=== PATIENT | male | born 1960 | race Caucasian/White ===

== ENCOUNTER → 2019-10-29 09:20 | Outpatient (BNVA) | payer MEDICARE, SELFPAY | PROVIDERS: Family Provider Family Medicine; PCP Family Medicine; Visit Provider Internal Medicine Cardiovascular Disease | DX: I10 Essential (primary) hypertension (principal) | CPT/HCPCS: 80048 ==

== ENCOUNTER 2021-02-02 15:37 | Outpatient (CLI) | payer MEDICARE, SELFPAY ==
--- NOTE | 2021-02-02 15:45 | USCV_ITS ---
Randy Lamb Age: 60 Gender: M : 1960 Exam Date: 02/02/2021 16:03 Ordering Phys: Akila Schwartz MD ([email or web address]) Technologist: Ivanna Martin Exam Location: [facility] [place] Indication: CHEST PAIN BP: 195 / 110 HR: 73 Rhythm: Atrial fibrillation Technical Quality: Adequate MEASUREMENTS (Male / Female) Normal Values 2D ECHO LV Diastolic Diameter PLAX 4.5 cm 4.2 - 5.9 / 3.9 - 5.3 cm LV Systolic Diameter PLAX 2.9 cm IVS Diastolic Thickness 1.8 cm 0.6 - 1.0 / 0.6 - 0.9 cm IVS Systolic Thickness 2.2 cm LVPW Diastolic Thickness 1.2 cm 0.6 - 1.0 / 0.6 - 0.9 cm LVPW Systolic Thickness 1.6 cm LVOT Diameter 2.0 cm LV Ejection Fraction 2D Teich 66.1 % LV Ejection Fraction MOD 2C 63.9 % LV Ejection Fraction 2C AL 67.0 % LA Diameter 3.8 cm LA Width 4.1 cm LA Height 6.4 cm RA Width 4.8 cm RA Height 4.6 cm Aorta at Sinotubular Diameter 3.1 cm M-MODE LV Diastolic Diameter MM 5.0 cm 4.2 - 5.9 / 3.9 - 5.3 cm LV Systolic Diameter MM 2.2 cm LV Ejection Fraction MM Teich 86.2 % IVS Diastolic Thickness MM 1.4 cm 0.6 - 1.0 / 0.6 - 0.9 cm IVS Systolic Thickness MM 2.9 cm LVPW Diastolic Thickness MM 1.7 cm 0.6 - 1.0 / 0.6 - 0.9 cm LVPW Systolic Thickness MM 2.4 cm MV E Point Septal Separation 0.3 cm DOPPLER AV Peak Velocity 100.0 cm/s LVOT Peak Velocity 80.0 cm/s AV Area Cont Eq vti 2.8 cm squared AV Area Cont Eq pk 2.5 cm squared MV Area PHT 4.0 cm squared Mitral E to A Ratio 2.7 MV E' Velocity 63.5 cm/s Mitral E to MV E' Ratio 12.8 Mitral E to LV E' Lateral Ratio 10.3 Mitral E to LV E' Septal Ratio 17.0 TR Peak Velocity 240.0 cm/s TR Peak Gradient 23.0 mmHg TV Peak E Velocity 55.0 cm/s PV Peak Velocity 104.0 cm/s RV Acceleration Time 0.1 s RV Ejection Time 0.3 s RV AcT/ET 0.3 FINDINGS Left Ventricle Normal left ventricular cavity size. Normal left ventricular systolic function. Left ventricular ejection fraction is estimated at 60 %. Grade III/IV diastolic dysfunction (restrictive filling pattern), severely elevated filling pressures. Right Ventricle The right ventricle is normal in size and function. Right Atrium The right atrium is normal in size. Left Atrium Moderately increased left atrial size. Mitral Valve Mildly thickened mitral valve. No mitral valve stenosis. Mild- moderate mitral valve regurgitation. Aortic Valve Structurally normal aortic valve without significant sclerosis or stenosis. There is no aortic regurgitation. Tricuspid Valve Moderate tricuspid valve regurgitation. Pulmonic Valve Structurally normal pulmonic valve without significant stenosis. There is no pulmonic regurgitation. Pericardium Normal pericardium without effusion. Aorta Normal ascending aorta dimension. CONCLUSIONS 1-Normal left ventricular cavity size. Normal left ventricular systolic function. Left ventricular ejection fraction is estimated at 60 %. Grade III/IV diastolic dysfunction (restrictive filling pattern), severely elevated filling pressures. 2-Moderately increased left atrial size. 3-Mildly thickened mitral valve. No mitral valve stenosis. Mild- moderate mitral valve regurgitation. 4-Moderate tricuspid valve regurgitation. 5-There is no pericardial effusion. 6-Right atrial pressure is around 5 mm of mercury. 7-No significant change since the prior echocardiogram study of 04/02/2019. Akila Schwartz MD (Electronically Signed) Final Date: 03 February 2021 20:12 S
== END 2021-02-02 15:38 | disposition home or self-care (01) ==
LOC: RAD 15:43
PROVIDERS: PCP Family Medicine; Visit Provider Internal Medicine Cardiovascular Disease
DX: R07.9 Chest pain, unspecified (principal); R06.02 Shortness of breath; I08.1 Rheumatic disorders of both mitral and tricuspid valves
CPT/HCPCS: 93306

== ENCOUNTER 2021-02-10 07:19 | Outpatient (CLI) | payer MEDICARE, SELFPAY ==
[2021-02-10 07:28] VITALS: BMI 32.5
--- NOTE | 2021-02-10 07:39 | ECG_ITS ---
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 Interpretive Statements NAME OF STUDY: LEXISCAN SESTAMIBI STRESS TEST INDICATION: [sob/cp, ] Procedure: At the baseline, the blood pressure was 163/103 mmHg with a heart rate of 67 bpm. The electrocardiogram showed atrial fibrillation, normal axis with non specific ST-T wave changes. The Lexiscan was infused over a period of 20 seconds. A total of 0.4 mg of Lexiscan was infused. The stress phase was continued for a total of 5 minutes. Heart rate was at the end of stress phase was 79 bpm and a blood pressure of 157/97mmHg. The EKG at the peak infusion revealed since normal sinus rhythm with no significant ST-T wave changes. Sestamibi was injected 20 seconds after the Lexiscan infusion. Blood pressure at the end of recovery phase was 156/96 mmHg with a heart rate of 81 bpm. Conclusion: 1. Normal EKG response to Lexiscan infusion 2. No Lexiscan induced chest pain or cardiac arrhythmia. 3. Normal blood pressure and heart rate response. 4. Sestamibi/sestamibi perfusion scan pending; see separate report. Electronically Signed On 03-28-2021 15:06:47 CDT by Reynold Brown M.D. [id number]
--- NOTE | 2021-02-10 07:39 | NMCV_ITS ---
NM per perf SPECT r/s* [id number] Randy Lamb Age: 60 Gender: M : 1960 Exam Date: 02/10/2021 08:21 Ordering Phys: Akila Schwartz MD ([email or web address]) Technologist: CORRINA Arcos Exam Location: [facility] Indications: CHEST PAIN STRESS TEST [facility] IMAGE PROTOCOL Rest/Stress 1 Lexiscan Day Radiopharmaceutical Dose (mCi) Administration Site Administered by Rest: Tc-99m 10.8 IV CORRINA Miles Sestamibi Stress:Tc-99m 32.6 IV CORRINA Miles Sestamibi Rest: 10-Feb-2021 60 Discovery 630 Stress: 10-Feb-2021 30 Discovery 630 0.4mg Lexiscan. Images obtained in supine and prone position. SPECT RESULTS Technical Quality: Excellent Raw Data Analysis: Normal Image Corrections: No attenuation or motion correction applied Summed Stress Score: 2 Summed Rest Score: 0 Summed Difference Score: 2 PERFUSION FINDINGS There is a small sized reversible perfusion defect in the apical inferior and mid inferior malhotra. FUNCTIONAL RESULTS (calculated via Gated SPECT) Stress Image LV EF (%): 68 Stress EDV (mL):152 TID: 1.11 Stress ESV (mL):48 FUNCTIONAL FINDINGS: There is normal left ventricular systolic function. IMPRESSIONS 1. Abnormal stress test with small sized, reversible perfusion defect of the apical inferior and inferior malhotra. This is consistent with ischemia 2. LV systolic function is normal Reynold Brown MD (Electronically Signed) Final Date: 10 February 2021 13:42 S
[2021-02-10] MEDS: regadenoson 0.4 Mg/5 ml Syringe IVP (08:55)
[2021-02-10] MEDS: hyDRALAzine 20 mg/mL INJ 1 mL 10 MG IVP (09:05)
[2021-02-10 09:27] VITALS: BP 156/96; PULSE 75
== END 2021-02-10 07:20 | disposition home or self-care (01) ==
LOC: CDL 07:24
PROVIDERS: PCP Family Medicine; Visit Provider Internal Medicine Cardiovascular Disease
DX: R06.02 Shortness of breath (principal); R07.9 Chest pain, unspecified
CPT/HCPCS: 78452; 93017; A9500; J0360; J2785

== ENCOUNTER 2022-01-29 19:54 | Observation (INO) | payer MEDICARE, SELFPAY ==
[2022-01-29] VITALS (8 sets, daily range): BP systolic 133–198; BP diastolic 84–115; PULSE 86–99; RESP 14–18; TEMP 37.8–38.3; O2SAT 94–96
--- NOTE | 2022-01-29 20:12 | CTR_ITS ---
PROCEDURE INFORMATION: Exam: CT Abdomen And Pelvis Without Contrast Exam date and time: 01/29/2022 8:38 PM Age: 61 years old Clinical indication: Other: Hernia near umbilicus per PT; Additional info: Fever TECHNIQUE: Imaging protocol: Computed tomography of the abdomen and pelvis without contrast. Radiation optimization: All CT scans at this facility use at least one of these dose optimization techniques: automated exposure control; mA and/or kV adjustment per patient size (includes targeted exams where dose is matched to clinical indication); or iterative reconstruction. COMPARISON: CR (CHEST, ) 01/29/2022 8:21 PM RADIATION DOSE METRICS: Total DLP (mGy-cm): 2782.78 FINDINGS: Lungs: Nonspecific bibasilar ground glass opacity is present, consistent with atelectasis, edema, or mild pneumonitis. Liver: Several hepatic hypodensities are noted compatible with cysts with the largest measuring 2.0cm. Gallbladder and bile ducts: Normal. No calcified stones. No ductal dilation. Pancreas: There is mild peripancreatic inflammatory stranding and fluid, consistent with mild acute pancreatitis vs respiratory motion artifact. Spleen: Normal. No splenomegaly. Adrenal glands: Normal. No mass. Kidneys and ureters: There is no evidence of hydronephrosis. There is no evidence of renal calcifications. There is a 1.0 cm left kidney midpole fat density lesion compatible with an angiomyolipoma. Stomach and bowel: There is no evidence of intestinal perforation or obstruction. No bowel thickening or diverticulits. Appendix: No evidence of appendicitis. Intraperitoneal space: Unremarkable. No free air. No significant fluid collection. Vasculature: Unremarkable.No abdominal aortic aneurysm. Lymph nodes: Unremarkable.No enlarged lymph nodes. Urinary bladder: Unremarkable as visualized. Reproductive: Unremarkable as visualized. Bones/joints: Moderate degenerative changes in spine. No acute fracture. Soft tissues: There is a fat-containing umbilical hernia. No evidence of obstruction or incarceration of the fat in the hernia. CT/CT abdomen pelvis wo con [id number] IMPRESSION: 1. There is a fat-containing umbilical hernia. No evidence of obstruction or incarceration of the fat in the hernia. 2. There is mild peripancreatic inflammatory stranding and fluid, consistent with mild acute pancreatitis vs respiratory motion artifact. 3. Nonspecific bibasilar ground glass opacity is present, consistent with atelectasis, edema, or mild pneumonitis. 4. There is a 1.0 cm left kidney midpole fat density lesion compatible with an angiomyolipoma.
--- NOTE | 2022-01-29 20:12 | ECG_ITS ---
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 Measurements Intervals [place] Rate: 95 P: GA: QRS: 44 QRSD: 90 T: 44 QT: 331 QTc: 417 Interpretive Statements ATRIAL FIBRILLATION NONSPECIFIC ST & T-WAVE ABNORMALITY No previous ECG available for comparison Electronically Signed On 01-30-2022 18:31:35 CDT by Reynold Brown M.D. [id number]
--- NOTE | 2022-01-29 20:12 | CTR_ITS ---
PROCEDURE INFORMATION: Exam: CT Head Without Contrast Exam date and time: 01/29/2022 8:34 PM Age: 61 years old Clinical indication: Altered mental status/memory loss; Additional info: Fever TECHNIQUE: Imaging protocol: Computed tomography of the head without contrast. Radiation optimization: All CT scans at this facility use at least one of these dose optimization techniques: automated exposure control; mA and/or kV adjustment per patient size (includes targeted exams where dose is matched to clinical indication); or iterative reconstruction. COMPARISON: No relevant prior studies available. RADIATION DOSE METRICS: Total DLP (mGy-cm): 987.77 FINDINGS: Brain: There is volume loss and periventricular low density compatible with chronic small vessel disease changes. There is no acute intracranial hemorrhage, edema or mass effect. There are small bifrontal benign hygromas. Cerebral ventricles: No ventriculomegaly. Paranasal sinuses: Visualized sinuses are unremarkable. No fluid levels. Mastoid air cells: Visualized mastoid air cells are well aerated. Bones/joints: Unremarkable. No acute fracture. Soft tissues: Unremarkable. CT/CT head wo con* [id number] IMPRESSION: No acute intracranial abnormality.
--- NOTE | 2022-01-29 20:12 | XRR_ITS ---
PROCEDURE INFORMATION: Exam: XR Chest Exam date and time: 01/29/2022 8:21 PM Age: 61 years old Clinical indication: Fever TECHNIQUE: Imaging protocol: XR of the chest. Views: 1 view. COMPARISON: No relevant prior studies available. FINDINGS: Lungs: Nonspecific bibasilar opacity is present, consistent with atelectasis, edema, or pneumonia. Pleural spaces: Unremarkable. No pleural effusion. No pneumothorax. Heart/Mediastinum: There is cardiomegaly. Bones/joints: No acute abnormality. XR/XR chest 1V portable [id number] IMPRESSION: Nonspecific bibasilar opacity is present, consistent with atelectasis, edema, or pneumonia.
--- NOTE | 2022-01-29 20:16 | W.ED.WEAKNES ---
HPI - Weakness General: Chief complaint: Weakness Stated complaint: fever,confused, headache Time Seen by Provider: 01/29/22 20:06 Source: patient Mode of arrival: ambulatory Limitations: no limitations History of Present Illness: 61-year-old male who states he has had a fever since this morning. He states he had some generalized body aches mild headache along with some abdominal pain he states he has felt confused at times he is able answer all my questions here appropriately denies any neck pain denies any cough denies any vomiting diarrhea denies any sick contacts denies any worsening improving factors. Associated symptoms: Reports chills, fever(s) and headache(s); Denies chest pain, dysuria or easy bruising Review of Systems Const: Reports: fever(s), chills and body aches Eyes: Denies: blurry vision or eye discomfort ENMT: Denies: throat pain or dental pain Card: Denies: chest pain Resp: Denies: dyspnea GI: Reports: abdominal pain : Denies: dysuria Musc: Denies: neck pain or back pain Skin/Breast: Denies: rash Neuro: Reports: headache(s) Psych: Denies: depression Jacques/Lymph: Denies: easy bruising All/Imm: Denies: urticaria PFSH ED PFSH: Medical History Atrial fibrillation HTN (hypertension) Surgical History Previous back surgery S/P appendectomy S/P knee replacement S/P shoulder surgery Family History Mother Hypertension Heart disease Bleeding disorder CAD (coronary artery disease) Diabetes Family history of premature coronary artery disease Father Hypertension Cancer Hyperlipidemia Grandmother Dementia Grandfather Stroke Social History Smoking and tobacco status: former smoker Quit status (tobacco): has quit using tobacco Second hand smoke exposure: Yes Alcohol intake: never Physical Exam Const: COMMON NORMALS: patient oriented x3 and healthy appearing HENMT: COMMON NORMALS: normocephalic and atraumatic HEAD & SCALP: normocephalic and atraumatic Eye: COMMON NORMALS: Equal, round and reactive pupils present and EOMs intact bilaterally PUPIL: Yes Equal, round and reactive pupils present Neck/C-Spine: COMMON NORMALS: full ROM and supple Chest: COMMONS NORMALS: normal inspection of the chest and normal palpation of entire chest wall Resp: COMMON NORMALS: normal respiratory effort, No retractions, No use of accessory muscles and clear to auscultation bilaterally AUSCULTATION: clear to auscultation bilaterally Cardio: COMMON NORMALS: regular rate, regular rhythm and No murmurs present (Cardio) RATE: regular rate RHYTHM: regular rhythm GI: COMMON NORMALS: Normal to inspection, nondistended, normoactive bowel sounds present, Soft to palpation, non-tender and no masses PALPATION: Yes Soft to palpation Extremity: COMMON NORMALS: normal to inspection and full ROM Neuro: COMMON NORMALS: patient oriented x3, moves all extremities and no focal motor deficits Psych: COMMON NORMALS: mental status grossly normal, Normal thought process present and cooperative THOUGHT PROCESS: Normal thought process present Skin: COMMON NORMALS: no rashes or lesions noted and no wounds GENERAL SKIN EXAM: no rashes or lesions noted Course Vital Signs: Vital signs: Vital Signs Temperature 100.0 F H 01/29/22 22:14 Pulse Rate 86 01/29/22 20:56 Respiratory Rate 14 01/29/22 20:56 Blood Pressure 169/103 01/29/22 20:56 Pulse Oximetry 96 01/29/22 20:56 MDM - Weakness Medical Decision Making Patient presents here with some confusion along with a fever CT and x-ray both showed a pneumonia likely causing his fever. His mentation is improved here after his fevers went down he has no signs of meningitis spoke to hospitalist will admit for IV antibiotics and to follow-up. Lab Data : 01/29/22 20:30 01/29/22 20:30 Radiology Impressions Abdomen/Pelvis CT 01/29/22 20:12 IMPRESSION: 1. There is a fat-containing umbilical hernia. No evidence of obstruction or incarceration of the fat in the hernia. 2. There is mild peripancreatic inflammatory stranding and fluid, consistent with mild acute pancreatitis vs respiratory motion artifact. 3. Nonspecific bibasilar ground glass opacity is present, consistent with atelectasis, edema, or mild pneumonitis. 4. There is a 1.0 cm left kidney midpole fat density lesion compatible with an angiomyolipoma. Chest X-Ray 01/29/22:12 IMPRESSION: Nonspecific bibasilar opacity is present, consistent with atelectasis, edema, or pneumonia. Head CT 01/29/22: IMPRESSION: No acute intracranial abnormality. Laboratory Results WBC 7.4 10^3/uL (4.0-10.0) 01/29/22 20: RBC 3.90 10^6/uL (4.1-5.3) L 01/29/22 20: Hgb 13.0 g/dL (11.7-16.6) 01/29/22 20: Hct 36.5 % (42.0-52.0) L 01/29/22 20: MCV 93.6 fl (80-94) 01/29/22: MCH 33.3 pg (28.0-34.0) 01/29/22 20: MCHC 35.6 g/dL (30.0-36.0) 01/29/22: RDW 12.2 % (12.1-15.1) 01/29/22 20: Plt Count 207 10^3/cmm (130-400) 01/29/22 20: MPV 10.2 fL (7.4-10.4) 01/29/22 20: Neut % (Auto) 79.0 % 01/29/22 20: Lymph % (Auto) 9.0 % 01/29/22 20: Potter % (Auto) 10.9 % 01/29/22 20: Eos % (Auto) 0.3 % 01/29/22: Baso % (Auto) 0.4 % 01/29/22 20:30 Neut # (Auto) 5.81 10^3/uL (1.8-7.7) 01/29/22 20: Lymph # (Auto) 0.7 10^3/uL (0.8-4.8) L 01/29/22 20:30 Potter # (Auto) 0.8 10^3/uL (0.2-0.9) 01/29/22 20:30 Eos # (Auto) 0.0 10^3/uL (0.0-0.8) 01/29/22 20:30 Baso # (Auto) 0.0 10^3/uL (0.0-0.1) 01/29/22 20:30 Nucleated RBC % (auto) 0 % 01/29/22 20: Nucleated RBCs # 0.0 /100WBC 01/29/22 20:30 PT 17.70 SECONDS (12.1-14.9) H 01/29/22 20:50 INR 1.42 (0.8-1.2) H 01/29/22 20:50 D-Dimer 0.38 ug/mIFEU (0-0.59) 01/29/22 20:50 Sodium 135 mmol/L (136-145) L 01/29/22 20:30 Potassium 3.3 mmol/L (3.5-5.1) L 01/29/22 20: Chloride 100 mmol/L (98-107) 01/29/22 20: Carbon Dioxide 24 mmol/L (22-29) 01/29/22 20:30 Anion Gap 14.3 (5-19) 01/29/22 20:30 BUN 15 mg/dL (8-23) 01/29/22 20:30 Creatinine 0.9 mg/dL (0.7-1.2) 01/29/22 20:30 GFR Calculation 75.5 mL/min (90-130) L 01/29/22 20:30 Glucose 105 mg/dL (65-115) 01/29/22 20:30 POC Glucose 101 mg/dL (70-110) 01/29/22 21:25 Calculated Osmolality 282 mOsm/kg (285-295) L 01/29/22 20:30 Lactic Acid 0.9 mmol/L (0.5-2.2) 01/29/22 20:30 Calcium 9.8 mg/dL (8.5-10.5) 01/29/22 20:30 Total Bilirubin 0.2 mg/dL (0.15-1.2) 01/29/22 20:30 AST 33 U/L (0-40) 01/29/22 20:30 ALT 36 U/L (0-41) 01/29/22 20:30 Alkaline Phosphatase 53 IU/L (40-130) 01/29/22 20:30 Total Protein 7.8 g/dL (6.6-8.7) 01/29/22 20: Albumin 4.4 g/dL (3.5-5.2) 01/29/22 20: Globulin 3.3 g/dL (1.3-4.6) 01/29/22 20:30 Lipase 16 U/L (13-60) 01/29/22 20:30 Urine Color Yellow (Yellow) 01/29/22 21:25 Urine Appearance Sl hazy (CLEAR) 01/29/22 21:25 Urine pH 6 (5-7) 01/29/22 21:25 Ur Specific [place] 1.020 (1.005-1.030) 01/29/22 21:25 Urine Protein Neg (Negative) 01/29/22 21:25 Urine Glucose (UA) Norm (Normal) 01/29/22 21:25 Urine Ketones Negative (Negative) 01/29/22 21:25 Urine Blood Neg (Negative) 01/29/22 21:25 Urine Nitrate Negative (Negative) 01/29/22 21:25 Urine Bilirubin 1+ (Negative) H 01/29/22 21:25 Urine Urobilinogen Norm mg/dL (Negative) 01/29/22 21:25 Ur Leukocyte Esterase Negative (Negative) 01/29/22 21:25 Coronavirus 229E (PCR) Not detected (NOT DETECT) 01/29/22 20:25 SARS-CoV-2 (PCR) Not detected (NOT DETECT) 01/29/22 20:25 EKG Data EKG 1: I personally reviewed and interpreted this EKG as follows: EKG interpretation date: 01/29/22 EKG interpretation time: : Interpretation: afib rvr hr [address] or t wave abnormalities qrs 90 qtc 384 Discharge Plan Discharge Patient Disposition: Admitted As Inpatient Admit Provider: Grant Mcmahon Clinical Impression: Pneumonia, Altered mental status Condition: Stable Coding Level of Care Code ED [employer] Professor for Chg Fwd Exam Comprehensive
[2022-01-29 20:45] LABS: Basophils % 0.4 %; Eosinophils % 0.3 %; Hematocrit 36.5 % (42.0-52.0); Lymphocytes # 0.7 10^3/uL (0.8-4.8); Mean Corpuscular HGB Conc 35.6 g/dL (30.0-36.0); Mean Corpuscular Hemoglobin 33.3 pg (28.0-34.0); Mean Corpuscular Volume 93.6 fl (80-94); Mean Platelet Volume 10.2 fL (7.4-10.4); Monocytes # 0.8 10^3/uL (0.2-0.9); Monocytes % 10.9 %; Neutrophils # 5.81 10^3/uL (1.8-7.7); Nucleated Red Blood Cells % 0 %; Platelet Count 207 10^3/cmm (130-400); Red Cell Distribution Width 12.2 % (12.1-15.1); White Blood Count 7.4 10^3/uL (4.0-10.0)
[2022-01-29] MEDS: acetaminophen 325 mg Tablet 650 MG PO (20:52)
[2022-01-29] MEDS: sodium chloride 0.9% 1,000 ML 999 ML IV (20:53)
[2022-01-29 21:14] LABS: Alanine Aminotransferase 36 U/L (0-41); Anion Gap 14.3 (5-19); Aspartate Amino Transferase 33 U/L (0-40); Blood Urea Nitrogen 15 mg/dL (8-23); Calcium 9.8 mg/dL (8.5-10.5); Carbon Dioxide 24 mmol/L (22-29); Chloride 100 mmol/L (98-107); Lipase 16 U/L (13-60); Total Bilirubin 0.2 mg/dL (0.15-1.2); Total Protein 7.8 g/dL (6.6-8.7)
[2022-01-29 21:15] LABS: Lactic Sepsis W/Reflex 0.9 mmol/L (0.5-2.2)
[2022-01-29 21:30] LABS: Glucose Point of Care 101 mg/dL (70-110)
[2022-01-29 21:36] LABS: Albumin Level 4.4 g/dL (3.5-5.2); Alkaline Phosphatase 53 IU/L (40-130); Globulin 3.3 g/dL (1.3-4.6); Glomerular Filtration Rate 75.5 mL/min (90-130); Glucose 105 mg/dL (65-115); Osmolality Calculated 282 mOsm/kg (285-295); Potassium 3.3 mmol/L (3.5-5.1); Sodium 135 mmol/L (136-145)
[2022-01-29 21:47] LABS: Add Urine Microscopic? NO; Charge for UA Resulting for Rev
[2022-01-29] MEDS: cefTRIAXone 1,000 MG in sodium chloride 0.9% (plus) 50 ML 100 MG IV (21:56)
[2022-01-29 21:57] LABS: INR 1.42 (0.8-1.2)
[2022-01-29 22:00] LABS: Bilirubin Urine 1+ (Negative); Blood Urine Neg (Negative); Glucose Urine UA Norm (Normal); Ketones Urine Negative (Negative); Leukocyte Esterase Urine Negative (Negative); Nitrate Urine Negative (Negative); Protein Urine Neg (Negative); Urine Appearance SL Hazy (CLEAR); Urine Color Yellow (Yellow); Urobilinogen Urine Norm (Negative); pH Urine 6 (5-7)
[2022-01-29] MEDS: ketorolac 30 mg/mL INJ 15 MG IVP (22:28)
[2022-01-29] MEDS: azithromycin 500 MG in sodium chloride 0.9% 250 ML 250 MG IV (22:30)
[2022-01-29 22:34] LABS: Adenovirus Not Detected (NOT DETECT); Chlamydia Pneumoniae Not Detected (NOT DETECT); Coronavirus 229E,HKU1,NL63,OC4 Not Detected (NOT DETECT); Human Metapneumovirus Not Detected (NOT DETECT); Human Rhinovirus/Enterovirus Not Detected (NOT DETECT); Influenza A Not Detected (NOT DETECT); Influenza A H1 Not Detected (NOT DETECT); Influenza A H1-2009 Not Detected (NOT DETECT); Influenza A H3 Not Detected (NOT DETECT); Influenza B Not Detected (NOT DETECT); Mycoplasma Pneumoniae Not Detected (NOT DETECT); Parainfluenza Virus Type 1 Not Detected (NOT DETECT); Parainfluenza Virus Type 2 Not Detected (NOT DETECT); Parainfluenza Virus Type 3 Not Detected (NOT DETECT); Parainfluenza Virus Type 4 Not Detected (NOT DETECT); Respiratory Syncytial Virus A Not Detected (NOT DETECT); Respiratory Syncytial Virus B Not Detected (NOT DETECT); SARS-COV-2 Not Detected (NOT DETECT)
[2022-01-29 23:27] LABS: D Dimer 0.38 ug/mIFEU (0-0.59)
--- NOTE | 2022-01-29 23:34 | PM.HP ---
Providers/Chief Complaint Admitting Physician: Grant Mcmahon MD Primary Care Provider: Monie Dorado DO Chief Complaint: fever,confused, headache History of Present Illness Randy Lamb is a 61 year old male with a past medical history of hypertension, atrial fibrillation on Eliquis, who presents [facility] due to fatigue, malaise, fevers, shortness of breath, chest pain. Patient tells me that he was doing fine over the weekend, he actually painted his house, he does tell me that he felt a bit more winded than normal. He tells me that this morning he woke up feeling fatigue, malaise, having substernal chest pain, and feeling short of breath. He was also noted to have 101 fevers, no dysuria, no hematuria, did have a cough, nonproductive, no known sick contacts, recent travel, he has had 3 COVID vaccines. His symptoms persisted throughout the day, continue to feel quite fatigued, malaise, having intermittent nonproductive cough, substernal pressure-like pain, with shortness of breath. No abdominal pain. No diarrhea. No dysuria. He does report a tick bite 2 days ago, he does not feel it was attached for that long, no rash. His tells him that he had episodes of confusion throughout the day, he is aware of his episodes of confusion such as he talked about chopping up logs and stacking them, but he was in bed all day, no slurring of her words, no facial droop, no focal weakness. Review of Systems Const: Reports: fever(s), chills, body aches, fatigue and malaise Eyes: Denies: change in vision, blurry vision or eye discharge ENMT: Denies: throat pain, odynophagia or nasal congestion Card: Reports: chest pain and dyspnea on exertion; Denies: edema or syncope Resp: Reports: dyspnea and non-productive cough; Denies: productive cough or wheezing GI: Denies: abdominal pain, nausea, vomiting, hematemesis, diarrhea, constipation, hematochezia or melena : Denies: flank pain, difficulty urinating, dysuria or urinary frequency Musc: Reports: muscle weakness; Denies: neck pain, back pain or joint pain Skin/Breast: Denies: rash or pruritus Neuro: Denies: headache(s), dizziness or vertigo Psych: Reports: sleeping more Endo: Denies: polyuria Jacques/Lymph: Denies: enlarged lymph nodes Medications/Allergies Home Medications Medication Instructions Recorded Confirmed Last Taken Type nitroglycerin 0.4 mg sublingual 0.4 mg SUBLINGUAL DIRECTED tab 09/23/19 01/29/22 Unknown History tablet (Nitrostat) hydralazine 50 mg tablet 50 mg PO TID 90 Days #270 tab 11/11/20 01/29/22 01/29/22 Rx apixaban 5 mg tablet 5 mg PO BID #180 tab 03/07/21 01/29/22 01/29/22 Rx valsartan 320 0.5 tab PO BID #180 tab 03/07/21 01/29/22 01/29/22 Rx mg-hydrochlorothiazide 25 mg tablet carvedilol 25 mg tablet 37.5 mg PO BID #270 tab 06/21/21 01/29/22 01/29/22 Rx Allergies Allergy/AdvReac Type Severity Reaction Status Date / Time No Known Allergies Allergy Verified 01/29/22 20:55 PFSH Acute PFSH: Medical History Atrial fibrillation HTN (hypertension) Surgical History Previous back surgery S/P appendectomy S/P knee replacement S/P shoulder surgery Family History Mother Hypertension Heart disease Bleeding disorder CAD (coronary artery disease) Diabetes Family history of premature coronary artery disease Father Hypertension Cancer Hyperlipidemia Grandmother Dementia Grandfather Stroke Social History Smoking and tobacco status: former smoker Quit status (tobacco): has quit using tobacco Second hand smoke exposure: Yes Alcohol intake: never Vitals/I&O/Wt Last Vital Signs Temp 100.0 F H 01/29/22 22:14 Pulse 86 01/29/22 20:56 Resp 14 01/29/22 20:56 BP 169/103 01/29/22 20:56 Pulse Ox 96 01/29/22 20:56 01/29/22 01/29/22 01/30/22 14:59 22:59 06:59 Intake Total 1000 / 1000 Balance 1000 / 1000 Weight last 48 hrs Weight 108.862 kg Physical Exam Const: COMMON NORMALS: no acute distress and patient oriented x3 HENMT: COMMON NORMALS: normocephalic HEAD & SCALP: normocephalic Eye: COMMON NORMALS: Equal, round and reactive pupils present and EOMs intact bilaterally Neck/C-Spine: COMMON NORMALS: no JVD GENERAL: Yes normal visual inspection and No Meningeal signs present Resp: COMMON NORMALS: normal respiratory effort, No retractions, No use of accessory muscles and clear to auscultation bilaterally AUSCULTATION: clear to auscultation bilaterally Cardio: COMMON NORMALS: no JVD, regular rate, regular rhythm, S1 normal heart sound present and S2 normal heart sound present RATE: regular rate RHYTHM: regular rhythm HEART SOUNDS: S1 normal heart sound present and S2 normal heart sound present GI: COMMON NORMALS: Normal to inspection, nondistended, normoactive bowel sounds present, Soft to palpation, non-tender, No hepatosplenomegaly present, no masses and no bruits PALPATION: Yes Soft to palpation and Yes No hepatosplenomegaly present Extremity: COMMON NORMALS: capillary refill normal, no clubbing, cyanosis or edema, no calf tenderness and no pedal edema Neuro: COMMON NORMALS: patient oriented x3, CN's II-XII intact bilaterally, moves all extremities and no focal motor deficits Psych: COMMON NORMALS: mental status grossly normal Data : 01/29/22 20:30 01/29/22 20:30 Micro: Microbiology 01/29/22 20:50 Blood Culture - Preliminary Blood SPECIMEN COLLECTED 01/29/22 20:30 Blood Culture - Preliminary Blood SPECIMEN COLLECTED A&P Assessment and plan (1) Pneumonia: Acute encephalopathy likely secondary to pneumonia -CT abdomen pelvis showed bibasilar groundglass opacities, COVID-negative, no significant leukocytosis, no UTI, CT abdomen no acute findings of the abdomen, he is febrile here in the emergency room alert oriented x3, following all commands, no nuchal rigidity - We will order CT of the chest -Pro-Demian, CRP, tick panel -Continue azithromycin, Rocephin -Follow blood cultures, sputum cultures, urine bacterial antigens -Full code -Eliquis for DVT prophylaxis Acute encephalopathy, likely secondary to pneumonia Atrial fibrillation not in exacerbation, continue Eliquis, Coreg Complaints of chest pain -Substernal chest pain, nonradiating -Serial EKGs, serial troponins -Stress test in 02/20 1. Abnormal stress test with small sized, reversible perfusion defect of the ?apical inferior and inferior malhotra. This is consistent with ischemia ?2. LV systolic function is normal -Medically managed -Monitor troponins, monitor EKGs, telemetry monitoring, monitor for chest pain -Aspirin, statin, Coreg, Eliquis -Cardiac echo Status: Acute Qualifiers: Laterality: bilateral Lung location: unspecified part of lung Pneumonia type: due to unspecified organism Qualified Code(s): J18.9 - Pneumonia, unspecified organism (2) Altered mental status: Status: Acute Qualifiers: Altered mental status type: unspecified Qualified Code(s): R41.82 - Altered mental status, unspecified Attestations Medical Necessity Statement*: Patient requires hospitalization, outpatient with observation, for acute encephalopathy secondary to pneumonia, chest pain, outpatient observation, less than 2 minutes Coding Level of Care Code Acute Counter Help for [facility] Fwd Diagnoses Pneumonia J18.9 Laterality: bilateral Lung location: unspecified part of lung Pneumonia type: due to unspecified organism Altered mental status R41.82 Altered mental status type: unspecified
[2022-01-29 23:49] LABS: NT Pro B Type Natriuretic Pept 3384 pg/mL (0-125); Procalcitonin 0.09 ng/mL (0-0.5)
[2022-01-30] VITALS (8 sets, daily range): BP systolic 129–185; BP diastolic 77–96; PULSE 77–92; RESP 16–18; TEMP 36.3–36.8; O2SAT 97–99; BMI 32.5
[2022-01-30] LABS: C Reactive Protein 40.2 mg/L (0.0-4.9)
[2022-01-30 00:04] LABS: Troponin(5th) Baseline 10 ng/L (0-15)
--- NOTE | 2022-01-30 00:10 | USCV_ITS ---
Randy Lamb Age: 61 Gender: M : 1960 Exam Date: 01/30/2022 01:43 Ordering Phys: Grant Mcmahon MD Technologist: SCHUYLER [place] [facility] [place]: Chest Pain BP: / HR: 75 Rhythm: Sinus Technical Quality: Adequate MEASUREMENTS (Male / Female) Normal Values 2D ECHO LV Diastolic Diameter PLAX 4.2 cm 4.2 - 5.9 / 3.9 - 5.3 cm LV Systolic Diameter PLAX 2.8 cm IVS Diastolic Thickness 1.4 cm 0.6 - 1.0 / 0.6 - 0.9 cm IVS Systolic Thickness 2.0 cm LVPW Diastolic Thickness 1.1 cm 0.6 - 1.0 / 0.6 - 0.9 cm LVPW Systolic Thickness 1.9 cm LVOT Diameter 1.9 cm LV Ejection Fraction 2D Teich 64.6 % LV Ejection Fraction MOD 2C 26.9 % LV Ejection Fraction 2C AL 30.1 % LA Diameter 4.8 cm LA Width 4.5 cm LA Height 8.0 cm RA Width 4.9 cm RA Height 6.9 cm Aorta at Sinotubular Diameter 1.8 cm IVC Diameter 2.9 cm M-MODE Aortic Annulus Diameter 2.2 cm LA Ao Ratio MM 3.1 MV E Point Septal Separation 0.7 cm DOPPLER AV Peak Velocity 113.3 cm/s LVOT Peak Velocity 83.0 cm/s AV Area Cont Eq vti 2.4 cm squared AV Area Cont Eq pk 2.1 cm squared MV Peak Velocity 118.0 cm/s MV Area PHT 4.6 cm squared MV E' Velocity 60.5 cm/s Mitral E to MV E' Ratio 10.3 Mitral E to LV E' Lateral Ratio 10.7 Mitral E to LV E' Septal Ratio 10.0 TR Peak Velocity 209.8 cm/s TR Peak Gradient 17.6 mmHg TR Mean Velocity 175.3 cm/s TR Mean Gradient 12.4 mmHg TR Velocity Time Integral 61.7 cm Right Atrial Pressure 10.0 mmHg Pulmonary Artery Systolic Pressu 27.6 mmHg PV Peak Velocity 105.0 cm/s RV Acceleration Time 0.1 s RV Ejection Time 0.3 s RV AcT/ET 0.3 FINDINGS Left Ventricle Normal left ventricular size. LV systolic function is normal with EF of 55-60%. No regional wall motion abnormalities. Diastolic function is abnormal Right Ventricle The right ventricle is normal in size and function. Right Atrium The right atrium is dilated Left Atrium The left atrium is dilated Mitral Valve Mitral valve is thickened without significant stenosis or prolapse. There is trace mitral regurgitation. Aortic Valve Structurally normal aortic valve without significant sclerosis or stenosis. There is no aortic regurgitation. Tricuspid Valve Structurally normal tricuspid valve without significant stenosis . Trace tricuspid regurgitation. Pulmonary artery systolic pressure is normal. Pulmonic Valve Not well visualized Pericardium Normal pericardium without effusion. Aorta Normal ascending aorta dimension. IVC CONCLUSIONS LV systolic function is normal with EF of 55-60% Diastolic dysfunction is noted Biatrial enlargement Mitral valve is thickened. Trace mitral regurgitation Trace tricuspid regurgitation Compared to prior echocardiogram from 02/02/2021, no significant changes are noted Reynold Brown MD (Electronically Signed) Final Date: 30 Jan 2022 10:24 S
--- NOTE | 2022-01-30 00:10 | CTR_ITS ---
PROCEDURE INFORMATION: Exam: CT Chest Without Contrast; Diagnostic Exam date and time: 01/30/2022 6:21 AM Age: 61 years old Clinical indication: Dyspnea; Additional info: Shortness of breath TECHNIQUE: Imaging protocol: Diagnostic computed tomography of the chest without contrast. Radiation optimization: All CT scans at this facility use at least one of these dose optimization techniques: automated exposure control; mA and/or kV adjustment per patient size (includes targeted exams where dose is matched to clinical indication); or iterative reconstruction. COMPARISON: CR (CHEST, ) 01/29/2022 8:21 PM RADIATION DOSE METRICS: Total DLP (mGy-cm): 935.07 FINDINGS: Lungs: 4.4 mm calcified granuloma seen in the left lower lobe. Pleural spaces: Unremarkable. No pneumothorax. No pleural effusion. Heart: Calcifications are seen in the coronary arteries. Lymph nodes: There are multiple small mediastinal lymph nodes seen that are below CT criteria for lymphadenopathy. Calcified left hilar lymph nodes are seen. Vasculature: Calcifications are seen in the thoracic aorta. There is mild prominence of the pulmonary vasculature, mild peribronchial cuffing and some hazy opacities present in the right lower hemithorax, findings suggesting pulmonary edema. Liver: There are 2 hypoattenuation lesions seen within the liver, the largest seen in the right hepatic lobe measuring 1.7 cm compatible with simple cysts. Spleen: Punctate calcifications are seen in the spleen compatible with calcified granulomas. Bones/joints: Unremarkable. No acute fracture. Soft tissues: Unremarkable. CT/CT chest wo con [id number] IMPRESSION: 1. Mild prominence of the pulmonary vasculature, mild peribronchial cuffing and some hazy opacities in the right lung base, findings that may represent pulmonary edema. 2. Prior granulomatous exposure
[2022-01-30] MEDS: pantoprazole 40 mg SDV IVP (00:33)
--- NOTE | 2022-01-30 00:40 | PC.NURSE ---
ADDMIT NOTE Pt received to floor from ER via wheelchair at 0010. Is alert and oriented. Denies any pain or discomfort. Reports had episode today where he developed a severe punding headache with associated fuziness/confusiion Says he could not think straight for quite some time. Does also report having some lightheadedness & dizziness but had no LOC. Says he sure feels alot better now. Occ prod cough of yellow phlegm and says his usual SOB with exertion. Says has had this since developement of A-fib. Received antibiotics in the ER. Nasal swabs done for flu & MRSA of nares. RN at bedside completing admisson assessment
[2022-01-30 01:07] LABS: Influenza A by IFA Negative (Negative); Influenza B by IFA Negative (Negative)
[2022-01-30 01:55] LABS: Basophils % 0.6 %; Eosinophils # 0.1 10^3/uL (0.0-0.8); Eosinophils % 1.1 %; Hematocrit 33.4 % (42.0-52.0); Hemoglobin 11.7 g/dL (11.7-16.6); Lymphocytes # 1.3 10^3/uL (0.8-4.8); Mean Corpuscular Hemoglobin 33.1 pg (28.0-34.0); Mean Corpuscular Volume 94.4 fl (80-94); Mean Platelet Volume 10.4 fL (7.4-10.4); Monocytes # 0.8 10^3/uL (0.2-0.9); Monocytes % 12.1 %; Neutrophils # 4.14 10^3/uL (1.8-7.7); Neutrophils % 65.9 %; Nucleated Red Blood Cells % 0 %; Platelet Count 170 10^3/cmm (130-400); Red Blood Count 3.54 10^6/uL (4.1-5.3); Red Cell Distribution Width 12.1 % (12.1-15.1); White Blood Count 6.3 10^3/uL (4.0-10.0)
[2022-01-30 02:15] LABS: Troponin 5 2HR 10.45 ng/L (0-15)
[2022-01-30 02:20] LABS: Alanine Aminotransferase 28 U/L (0-41); Albumin Level 3.8 g/dL (3.5-5.2); Alkaline Phosphatase 42 IU/L (40-130); Anion Gap 11.8 (5-19); Aspartate Amino Transferase 24 U/L (0-40); Blood Urea Nitrogen 15 mg/dL (8-23); Carbon Dioxide 24 mmol/L (22-29); Chloride 103 mmol/L (98-107); Globulin 2.6 g/dL (1.3-4.6); Glomerular Filtration Rate 85.2 mL/min (90-130); Glucose 93 mg/dL (65-115); Magnesium 2.2 mg/dL (1.7-2.3); Osmolality Calculated 283 mOsm/kg (285-295); Sodium 136 mmol/L (136-145); Total Protein 6.4 g/dL (6.6-8.7)
[2022-01-30 02:22] LABS: Potassium 2.8 mmol/L (3.5-5.1)
[2022-01-30 02:28] LABS: Thyroid Stimulating Hormone 0.93 uIU/mL (0.27-4.20)
[2022-01-30 02:29] LABS: Troponin 5 2HR Delta 0.45 ABS# (0-10)
[2022-01-30] MEDS: potassium chloride ER 20 mEq Tablet 40 MEQ PO (02:54)
[2022-01-30 06:02] LABS: Troponin 5 6HR 9.82 ng/L (0-15)
[2022-01-30 06:43] LABS: Troponin 5 6HR Delta -0.18 ng/L (0-12)
[2022-01-30] MEDS: apixaban 5 mg Tablet PO ×2 (09:17→18:29)
[2022-01-30] MEDS: losartan 50 mg Tablet PO ×2 (09:17→18:29)
[2022-01-30] MEDS: carvedilol 25 mg Tablet 37.5 MG PO ×2 (09:17→18:29)
[2022-01-30] MEDS: aspirin 81 mg EC Tablet PO (09:17)
[2022-01-30] MEDS: hyDRALAzine 50 mg Tablet PO ×2 (09:17→21:08)
[2022-01-30] MEDS: lidocaine 1% 5 ML in potassium chloride premix 100 ML 25 ML IV (09:19)
[2022-01-30] MEDS: acetaminophen 325 mg Tablet 650 MG PO (09:31)
--- NOTE | 2022-01-30 11:00 | PM.PN ---
Subjective Subjective: Patient is stating that he was working outside on a roof, he is not endorsing any chest pain, shortness of breath, diarrhea or burning micturition, He is awake and alert endorsing feeling much better Getting IV fluid hydration Vitals/I&O/Wt Last Vital Signs Temp 98.1 F 01/30/22 07:57 Pulse 92 01/30/22 07:57 Resp 18 01/30/22 07:57 BP 185/96 01/30/22 09:17 Pulse Ox 99 01/30/22 07:57 01/29/22 01/30/22 01/30/22 22:59 06:59 14:59 Intake Total 1050 / 1050 250 / 1300 120 / 120 Output Total 750 / 750 400 / 400 Balance 1050 / 1050 -500 / 550 -280 / -280 Weight last 48 hrs Weight 108.862 kg Weight 108.862 kg Physical Exam Narrative: Pleasant cooperative male Well-built No active signs of dehydration No signs of meningitis No signs of stroke S1, S2 Abdomen soft and nonsurgical on room air Data : 01/30/22 01:37 01/30/22 01:37 Micro: Microbiology 01/29/22 20:50 Blood Culture - Preliminary Blood SPECIMEN COLLECTED 01/29/22 20:30 Blood Culture - Preliminary Blood SPECIMEN COLLECTED A&P Assessment and plan (1) Pneumonia: Status: Acute Qualifiers: Laterality: bilateral Lung location: unspecified part of lung Pneumonia type: due to unspecified organism Qualified Code(s): J18.9 - Pneumonia, unspecified organism (2) Altered mental status: Status: Acute Qualifiers: Altered mental status type: unspecified Qualified Code(s): R41.82 - Altered mental status, unspecified (3) HTN (hypertension): Status: Acute Qualifiers: Hypertension type: unspecified Qualified Code(s): I10 - Essential (primary) hypertension (4) Atrial fibrillation: Status: Acute Qualifiers: Atrial fibrillation type: persistent (not longstanding) Qualified Code(s): I48.19 - Other persistent atrial fibrillation Plan Acute delirious episode secondary to heat exhaustion CT scan of chest did not show pneumonia I would give him 1 more day of antibiotics today, I will treat him for bronchitis, pneumonia ruled out He has been afebrile, hypertensive no signs of meningitis or stroke Is back to his baseline endorsing feeling much better Urine specific gravity is consistent with hemoconcentration Continue IV fluid hydration Adjust antihypertensive regimen Full code Cardiac diet A. fib without RVR Continue Eliquis Patient is full code No active chest pain, echo is unremarkable troponin without significant delta Diastolic heart failure Attestations Medical Necessity Statement*: Anticipating discharge tomorrow Time Spent in Patient Care: 30mins Coding Level of Care Code Acute [employer] Operator for Chg Fwd Diagnoses Pneumonia J18.9 Laterality: bilateral Lung location: unspecified part of lung Pneumonia type: due to unspecified organism Altered mental status R41.82 Altered mental status type: unspecified HTN (hypertension) I10 Hypertension type: unspecified Atrial fibrillation I48.19 Atrial fibrillation type: persistent (not longstanding)
[2022-01-30] MEDS: amlodipine 10 mg Tablet PO (11:40)
[2022-01-30] MEDS: atorvastatin 40 mg Tablet PO (21:08)
[2022-01-30] MEDS: cefTRIAXone 1,000 MG in sodium chloride 0.9% (plus) 50 ML 100 MG IV (21:10)
[2022-01-31] VITALS: BP 133/88; PULSE 74; RESP 16; TEMP 36.6; O2SAT 94
[2022-01-31 04:00] VITALS: TEMP 36.3
[2022-01-31 05:18] VITALS: BP 145/93; PULSE 86; RESP 14; TEMP 36.3; O2SAT 95
[2022-01-31 05:55] LABS: Basophils % 0.6 %; Eosinophils # 0.1 10^3/uL (0.0-0.8); Eosinophils % 2.3 %; Hemoglobin 12.1 g/dL (11.7-16.6); Lymphocytes # 1.1 10^3/uL (0.8-4.8); Mean Corpuscular HGB Conc 34.6 g/dL (30.0-36.0); Mean Corpuscular Hemoglobin 33.1 pg (28.0-34.0); Mean Corpuscular Volume 95.6 fl (80-94); Mean Platelet Volume 10.8 fL (7.4-10.4); Monocytes # 0.8 10^3/uL (0.2-0.9); Neutrophils # 2.82 10^3/uL (1.8-7.7); Neutrophils % 57.7 %; Nucleated Red Blood Cells % 0 %; Platelet Count 193 10^3/cmm (130-400); Red Blood Count 3.66 10^6/uL (4.1-5.3); Red Cell Distribution Width 12.5 % (12.1-15.1); White Blood Count 4.9 10^3/uL (4.0-10.0)
[2022-01-31 06:17] LABS: Alanine Aminotransferase 29 U/L (0-41); Albumin Level 3.8 g/dL (3.5-5.2); Alkaline Phosphatase 45 IU/L (40-130); Anion Gap 12.6 (5-19); Aspartate Amino Transferase 22 U/L (0-40); Blood Urea Nitrogen 13 mg/dL (8-23); Calcium 9.3 mg/dL (8.5-10.5); Carbon Dioxide 22 mmol/L (22-29); Chloride 108 mmol/L (98-107); Glomerular Filtration Rate 113.9 mL/min (90-130); Glucose 93 mg/dL (65-115); Magnesium 2.5 mg/dL (1.7-2.3); Osmolality Calculated 288 mOsm/kg (285-295); Phosphorus 2.4 mg/dL (2.5-4.5); Potassium 3.6 mmol/L (3.5-5.1); Sodium 139 mmol/L (136-145); Total Bilirubin 0.5 mg/dL (0.15-1.2); Total Protein 6.8 g/dL (6.6-8.7)
[2022-01-31 07:41] VITALS: BP 175/103; PULSE 80; RESP 18; TEMP 36.8; O2SAT 98
[2022-01-31 09:16] VITALS: BP 175/103
[2022-01-31] MEDS: hyDRALAzine 50 mg Tablet PO (09:16)
[2022-01-31] MEDS: aspirin 81 mg EC Tablet PO (09:16)
[2022-01-31] MEDS: amlodipine 10 mg Tablet PO (09:16)
[2022-01-31] MEDS: carvedilol 25 mg Tablet 37.5 MG PO (09:16)
[2022-01-31] MEDS: apixaban 5 mg Tablet PO (09:16)
[2022-01-31] MEDS: losartan 50 mg Tablet PO (09:16)
--- NOTE | 2022-01-31 10:07 | PM.DCS ---
Discharge Providers Date of Admission: 01/29/22 22:40 Date of Discharge: January 31, 2022 Attending Provider at Admission: Grant Mcmahon MD Attending Provider at Discharge: Akila Tena MD Primary Care Provider: Monie Dorado DO Diagnoses at Discharge Discharge Diagnosis (1) Pneumonia: Status: Acute Qualifiers: Laterality: bilateral Lung location: unspecified part of lung Pneumonia type: due to unspecified organism Qualified Code(s): J18.9 - Pneumonia, unspecified organism (2) Altered mental status: Status: Acute Qualifiers: Altered mental status type: unspecified Qualified Code(s): R41.82 - Altered mental status, unspecified (3) HTN (hypertension): Status: Acute Qualifiers: Hypertension type: unspecified Qualified Code(s): I10 - Essential (primary) hypertension (4) Atrial fibrillation: Status: Acute Qualifiers: Atrial fibrillation type: persistent (not longstanding) Qualified Code(s): I48.19 - Other persistent atrial fibrillation Reason for Visit Reason for Visit: fever,confused, headache Hospital Course Hospital Course Mr. Bhatt who is 60-year-old male very active for his age has history of A. fib, presented to the hospital with acute delirium there was initial couple readings with febrile events , clinically he did not show any symptoms or signs of meningitis, his opacity seen in the right lung base which was evident on CT chest, patient was working outside on the roof, my suspicion was high for heat exhaustion, symptoms improved within few hours in the hospital, he was given pneumonia treatment initially, he did not require any oxygen, no active shortness of breath, chest pain, neurological deficits noted. 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 I will give him IV hydralazine and then discharge him on 01/31 on doxycycline for possible bronchitis and add amlodipine for better control of blood pressure. I would also give him close follow-up with his PCP. Echo is unremarkable, endocarditis less likely. Fat-containing buccal hernia without obstruction, no signs of pancreatitis, CT chest showed peribronchial cuffing with hazy opacities in right lung base, clinically patient did not show signs of heart failure. Echo showed diastolic heart failure BNP 3300, discontinue valsartan hydrochlorothiazide combination, I will add Lasix 20 mg low-dose, continue valsartan Physical Exam Narrative: Alert and awake, cooperative and pleasant Nonfocal neuro exam No signs of meningitis Saturating well on room air Abdomen soft No active audible stridor or wheezing Discharge Data Studies Completed and Pending Completed Studies During Hospitalization Category Date Time Status CT abdomen pelvis wo con [id number] Urgent Cat Scan 01/29/22 20:[address] chest wo con [id number] Urgent Cat Scan 01/30/22 00:[address] head wo con* [id number] Urgent Cat Scan 01/29/22 20:12 Completed XR chest 1V portable [id number] Urgent Exams 01/29/22 20:12 Completed CV. echo complete* [id number] Routine Ultrasound 01/30/22 00:10 Completed Pending at discharge Category Date Time Status Blood Culture Stat Lab 01/29/22 20:50 Results Complete Blood Count w/Auto AM LABS Lab 02/01/22 04:00 Ordered Comprehensive Metabolic Panel AM LABS Lab 02/01/22 04:00 Ordered Magnesium AM LABS Lab 02/01/22 04:00 Ordered Phosphorus AM LABS Lab 02/01/22 04:00 Ordered Sputum Culture and Gram Stain Stat Lab 01/30/22 11:33 Results Tick Panel Stat Lab 01/29/22 23:32 Received Radiology Impressions Abdomen/Pelvis CT 01/29/22 20:12 IMPRESSION: 1. There is a fat-containing umbilical hernia. No evidence of obstruction or incarceration of the fat in the hernia. 2. There is mild peripancreatic inflammatory stranding and fluid, consistent with mild acute pancreatitis vs respiratory motion artifact. 3. Nonspecific bibasilar ground glass opacity is present, consistent with atelectasis, edema, or mild pneumonitis. 4. There is a 1.0 cm left kidney midpole fat density lesion compatible with an angiomyolipoma. Chest X-Ray 01/29/22 20:12 IMPRESSION: Nonspecific bibasilar opacity is present, consistent with atelectasis, edema, or pneumonia. Head CT 01/29/22 20:12 IMPRESSION: No acute intracranial abnormality. Chest CT 01/30/22 00:10 IMPRESSION: 1. Mild prominence of the pulmonary vasculature, mild peribronchial cuffing and some hazy opacities in the right lung base, findings that may represent pulmonary edema. 2. Prior granulomatous exposure Laboratory Results WBC 4.9 10^3/uL (4.0-10.0) 01/31/22 04:50 RBC 3.66 10^6/uL (4.1-5.3) L 01/31/22 04:50 Hgb 12.1 g/dL (11.7-16.6) 01/31/22 04:50 Hct 35.0 % (42.0-52.0) L 01/31/22 04:50 MCV 95.6 fl (80-94) H 01/31/22 04:50 MCH 33.1 pg (28.0-34.0) 01/31/22 04:50 MCHC 34.6 g/dL (30.0-36.0) 01/31/22 04:50 RDW 12.5 % (12.1-15.1) 01/31/22 04:50 Plt Count 193 10^3/cmm (130-400) 01/31/22 04:50 MPV 10.8 fL (7.4-10.4) H 01/31/22 04:50 Neut % (Auto) 57.7 % 01/31/22 04:50 Lymph % (Auto) 23.0 % 01/31/22 04:50 [place] % (Auto) 16.0 % 01/31/22 04:50 Eos % (Auto) 2.3 % 01/31/22 04:50 Baso % (Auto) 0.6 % 01/31/22 04:50 Neut # (Auto) 2.82 10^3/uL (1.8-7.7) 01/31/22 04:50 Lymph # (Auto) 1.1 10^3/uL (0.8-4.8) 01/31/22 04:50 [place] # (Auto) 0.8 10^3/uL (0.2-0.9) 01/31/22 04:50 Eos # (Auto) 0.1 10^3/uL (0.0-0.8) 01/31/22 04:50 Baso # (Auto) 0.0 10^3/uL (0.0-0.1) 01/31/22 04:50 Nucleated RBC % (auto) 0 % 01/31/22 04:50 Nucleated RBCs # 0.0 /100WBC 01/31/22 04:50 PT 17.70 SECONDS (12.1-14.9) H 01/29/22 20:50 INR 1.42 (0.8-1.2) H 01/29/22 20:50 D-Dimer 0.38 ug/mIFEU (0-0.59) 01/29/22 20:50 Sodium 139 mmol/L (136-145) 01/31/22 04:50 Potassium 3.6 mmol/L (3.5-5.1) 01/31/22 04:50 Chloride 108 mmol/L (98-107) H 01/31/22 04:50 Carbon Dioxide 22 mmol/L (22-29) 01/31/22 04:50 Anion Gap 12.6 (5-19) 01/31/22 04:50 BUN 13 mg/dL (8-23) 01/31/22 04:50 Creatinine 0.7 mg/dL (0.7-1.2) 01/31/22 04:50 GFR Calculation 113.9 mL/min (90-130) 01/31/22 04:50 Glucose 93 mg/dL (65-115) 01/31/22 04:50 POC Glucose 101 mg/dL (70-110) 01/29/22 21:25 Calculated Osmolality 288 mOsm/kg (285-295) 01/31/22 04:50 Lactic Acid 0.9 mmol/L (0.5-2.2) 01/29/22 20:30 Calcium 9.3 mg/dL (8.5-10.5) 01/31/22 04:50 Phosphorus 2.4 mg/dL (2.5-4.5) L 01/31/22 04:50 Magnesium 2.5 mg/dL (1.7-2.3) H 01/31/22 04:50 Total Bilirubin 0.5 mg/dL (0.15-1.2) 01/31/22 04:50 AST 22 U/L (0-40) 01/31/22 04:50 ALT 29 U/L (0-41) 01/31/22 04:50 Alkaline Phosphatase 45 IU/L (40-130) 01/31/22 04:50 Troponin T Baseline 10 ng/L (0-15) 01/29/22 23:33 Troponin T 120 Minute 10.45 ng/L (0-15) 01/30/22 01:37 Delta Troponin T 0.45 ABS# (0-10) 01/30/22 01:37 Troponin T Hi Sens 6Hr 9.82 ng/L (0-15) 01/30/22 05: Troponin T Hi Sens 6Hr Delta -0.18 ng/L (0-12) L 01/30/22 05:31 C-Reactive Protein 40.2 mg/L (0.0-4.9) H 01/29/22 20:30 NT-Pro-B Natriuret Pep 3384 pg/mL (0-125) H 01/29/22 20:30 Total Protein 6.8 g/dL (6.6-8.7) 01/31/22 04:50 Albumin 3.8 g/dL (3.5-5.2) 01/31/22 04:50 Globulin 3.0 g/dL (1.3-4.6) 01/31/22 04:50 Lipase 16 U/L (13-60) 01/29/22 20:30 TSH 0.93 uIU/mL (0.27-4.20) 01/30/22 01:37 Procalcitonin 0.10 ng/mL (0-0.5) 01/30/22 05:31 Urine Color Yellow (Yellow) 01/29/22 21:25 Urine Appearance Sl hazy (CLEAR) 01/29/22 21:25 Urine pH 6 (5-7) 01/29/22 21:25 Ur Specific [place] 1.020 (1.005-1.030) 01/29/22 21:25 Urine Protein Neg (Negative) 01/29/22 21:25 Urine Glucose (UA) Norm (Normal) 01/29/22 21:25 Urine Ketones Negative (Negative) 01/29/22 21:25 Urine Blood Neg (Negative) 01/29/22 21:25 Urine Nitrate Negative (Negative) 01/29/22 21:25 Urine Bilirubin 1+ (Negative) H 01/29/22 21:25 Urine Urobilinogen Norm mg/dL (Negative) 01/29/22 21:25 Ur Leukocyte Esterase Negative (Negative) 01/29/22 21:25 Coronavirus 229E (PCR) Not detected (NOT DETECT) 01/29/22 20:25 Influenza Type A Ag Negative (Negative) 01/30/22 00:30 Influenza Type B Ag Negative (Negative) 01/30/22 00:30 SARS-CoV-2 (PCR) Not detected (NOT DETECT) 01/29/22 20:25 Vitals Last Vital Signs Temp 98.3 F 01/31/22 07:41 Pulse 80 01/31/22 07:41 Resp 18 01/31/22 07:41 BP 175/103 01/31/22 09:16 Pulse Ox 98 01/31/22 07:41 Discharge Plan Discharge Patient Disposition: Home Condition: Stable Prescriptions: New amlodipine 10 mg tablet 10 mg PO DAILY Qty: 60 3RF doxycycline hyclate 100 mg tablet 100 mg PO BID 3 Days Qty: 6 0RF furosemide [Lasix] 20 mg tablet 20 mg PO DAILY PRN (Reason: weight gain) Qty: 30 4RF Rx Instructions: More than 3 pounds weight gain in a day, worsening shortness of breath you can take Lasix, when you take Lasix also take potassium with it potassium chloride 10 mEq capsule, extended release 10 meq PO DAILY PRN (Reason: When you take Lasix) Qty: 30 2RF valsartan 160 mg tablet 160 mg PO DAILY Qty: 60 3RF Rx Instructions: Discontinue losartan hydrochlorothiazide combination, you are getting valsartan alone as starting Lasix, do not take hydrochlorothiazide Continued nitroglycerin [Nitrostat] 0.4 mg tablet, sublingual 0.4 mg SUBLINGUAL DIRECTED 0RF hydralazine 50 mg tablet 50 mg PO TID 90 Days Qty: 270 2RF carvedilol 25 mg tablet 37.5 mg PO BID Qty: 270 3RF apixaban 5 mg tablet 5 mg PO BID Qty: 180 3RF Discontinued valsartan-hydrochlorothiazide 320-25 mg tablet 0.5 tab PO BID Qty: 180 3RF Discharge Orders: Discharge Order (Routine); Ordered 01/31/22 Ordered By: Akila Tena Referrals: Monie Dorado DO [Primary Care Provider] - 4-7 days (DOCTOR'S OFFICE WILL CALL YOU WITH AN APPOINTMENT DATE AND TIME. IF YOU DO NOT HEAR FROM THEM BY TOMORROW 02/01/22 PLEASE CALL. ) Discharge Diet: Cardiac Discharge Activity: Increase activity as tolerated Patient Instructions: Doxycycline (By mouth), Amlodipine (By mouth), Pneumonia (GEN), Opioid Safety Activity Restrictions/Additional Instructions: Please do not take combination of valsartan and hydrochlorothiazide I am starting Lasix, because of A. fib we noticed diastolic congestive heart failure, your EF of heart is normal, for now onwards she will take Lasix on as needed basis if you notice shortness of breath or weight gain, 90 take Lasix please do take potassium with it I have discontinued your valsartan hydrochlorothiazide combination, now onwards you will take valsartan alone Discharge Attestations Time Spent in Discharge Care*: less than 30 min Quality Metrics Clinical Quality Measures [ No reported AMI, CVA or VTE this stay] Coding Level of Care Code Acute Chg FW DC note Diagnoses Pneumonia J18.9 Laterality: bilateral Lung location: unspecified part of lung Pneumonia type: due to unspecified organism Altered mental status R41.82 Altered mental status type: unspecified HTN (hypertension) I10 Hypertension type: unspecified Atrial fibrillation I48.19 Atrial fibrillation type: persistent (not longstanding)
[2022-01-31 10:46] VITALS: BP 175/103
[2022-01-31 11:33] LABS: Lyme AB Screen <0.90 index
[2022-02-04 20:58] LABS: E. Chaffeensis AB IGG <1:64; E. Chaffeensis AB IGM <1:20
[2022-02-07 17:33] LABS: RMSF IGG NOT DETECTED; RMSF IGM NOT DETECTED
== END 2022-01-31 10:46 | disposition home or self-care (01) ==
LOC: ER 20:19 → MEDSURG 23:31
PROVIDERS: Admitting Provider Family Medicine; Emergency Provider Emergency Medicine; PCP Family Medicine; Visit Provider Internal Medicine
DX: J18.9 Pneumonia, unspecified organism (principal); R41.82 Altered mental status, unspecified; I10 Essential (primary) hypertension; I48.19 Other persistent atrial fibrillation; Z79.01 Long term (current) use of anticoagulants; Z87.891 Personal history of nicotine dependence; K42.9 Umbilical hernia without obstruction or gangrene
CPT/HCPCS: 36415; 36416; 70450; 71045; 71250; 74176; 80053; 81003; 82962; 83605; 83690; 83735; 83880; 84100; 84145; 84443; 84484; 85025; 85378; 85610; 86140; 86618; 86666; 86757; 87040; 87070; 87205; 87635; 87641; 87804; 93005; 93306; 96365; 96367; 96375; 99285; C9113; G0378; J0456; J0696; J1885; J3480; J7030; J7050

== ENCOUNTER → 2022-02-12 15:42 | Outpatient (BNVA) | payer MEDICARE, SELFPAY | PROVIDERS: PCP Family Medicine; Visit Provider Internal Medicine Cardiovascular Disease | DX: I48.91 Unspecified atrial fibrillation (principal); I11.9 Hypertensive heart disease without heart failure; Z87.891 Personal history of nicotine dependence; I07.1 Rheumatic tricuspid insufficiency; E87.6 Hypokalemia; R94.39 Abnormal result of other cardiovascular function study | CPT/HCPCS: 99214; 99215 ==

== ENCOUNTER → 2022-08-14 13:32 | Outpatient (BNVA) | payer MEDICARE, SELFPAY | PROVIDERS: PCP Family Medicine; Visit Provider Internal Medicine Cardiovascular Disease | DX: E87.6 Hypokalemia (principal); I48.19 Other persistent atrial fibrillation; Z79.01 Long term (current) use of anticoagulants; I11.9 Hypertensive heart disease without heart failure; Z87.891 Personal history of nicotine dependence | CPT/HCPCS: 99213 ==

== ENCOUNTER → 2023-02-19 15:13 | Outpatient (BNVA) | payer MEDICARE, SELFPAY | PROVIDERS: PCP Family Medicine; Visit Provider Specialist | DX: I10 Essential (primary) hypertension (principal); I48.19 Other persistent atrial fibrillation; Z79.01 Long term (current) use of anticoagulants; Z87.891 Personal history of nicotine dependence | CPT/HCPCS: 99214 ==

== ENCOUNTER 2023-03-04 07:42 | Outpatient (CLI) | payer MEDICARE, SELFPAY ==
--- NOTE | 2023-03-04 07:45 | USCV_ITS ---
Randy Lamb Age: 62 Gender: M : 1960 Exam Date: 03/04/2023 08:09 Ordering Phys: Hernan Hayes MD ([email or web address]) Technologist: [place] [facility] [place]: htn chronic Aortic Velocity @ SMA (cm/s) 92.9 RIGHT KIDNEY LEFT KIDNEY Velocity (cm/s) Velocity (cm/s) Sys/Montero Sys/Montero Resistive Index Resistive Index 92.4 / 12.9 0.86 Proximal Renal Artery 49.8 / 17.1 0.66 122.5 / 38.7 0.68 Mid Renal Artery 43.1 / 10.3 0.76 116.0 / 35.4 0.69 Distal Renal Artery 40.3 / 10.0 0.75 95.6 / 24.7 0.74 Hilar 44.4 / 14.8 0.67 91.4 / 19.2 0.79 Upper Pole 32.0 / 13.4 0.58 56.1 / 14.3 0.74 Mid Pole 32.4 / 10.0 0.69 54.3 / 11.9 0.78 Lower Pole 33.1 / 9.3 0.72 1.30 Renal Aortic Ratio 0.54 Accleration Index (cm/sec2) 1514.0 Hilar 554.00 0 618.00 Upper Pole 186.00 582.00 Mid Pole 110.00 1300.0 Lower Pole 523.00 0 123.8 Kidney Length (mm) 113.0 FINDINGS Rt Kidney length 12.3cm Lt kidney length 11.3cm CONCLUSIONS Normal color flow Doppler, peak systolic velocities, and resistive indices noted in bilateral main, segmental and interlobar renal arteries. 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
== END 2023-03-04 07:43 | disposition home or self-care (01) ==
PROVIDERS: PCP Family Medicine; Visit Provider Specialist
DX: I10 Essential (primary) hypertension (principal); I48.91 Unspecified atrial fibrillation
CPT/HCPCS: 93975

== ENCOUNTER 2023-05-31 12:26 | Emergency (ER) | payer MEDICARE, SELFPAY ==
[2023-05-31 12:35] VITALS: BP 216/122; PULSE 81; RESP 17; TEMP 36.2; O2SAT 97; BMI 32.5
--- NOTE | 2023-05-31 13:47 | XR_ITS ---
WS: [id number] Portable AP upright chest, 05/31/2023 Clinical Data: htn Comparison: Portable chest, 01/29/2022 Findings: No nodules, masses or effusions are seen. The heart is enlarged.. The pulmonary vascularity is not increased. No pneumonia or pneumothorax is seen. Monitor leads are on the chest wall. Impression: Cardiomegaly.
--- NOTE | 2023-05-31 13:48 | ECG_ITS ---
[facility] Test Date: 2023-05-31 Pat Name: Randy Lamb Department: Room: Gender: Male Supervisor [employer]: : 1960 Requested By: Kenny Tee Order Number: [id number] Andres MD: Reynold Brown M.D. Measurements Intervals [place] Rate: 70 P: 0 [place]: 0 QRS: 46 QRSD: 94 T: 81 QT: 394 QTc: 428 Interpretive Statements ATRIAL FIBRILLATION MODERATE VOLTAGE CRITERIA FOR LVH, CONSIDER NORMAL VARIANT [MEETS CRITERIA IN ONE OF: R(aVL), S(V1), R(V5), R(V5/V6)+S(V1)] MODERATE ST DEPRESSION [0.05+ mV ST DEPRESSION] Compared to ECG 01/29/2022 20:22:05 ST (T wave) deviation now present T-wave abnormality no longer present Electronically Signed On 06-01-2023 9:39:09 CDT by Reynold Brown M.D. [id number]
--- NOTE | 2023-05-31 13:48 | CT_ITS ---
WS: [id number] CT HEAD NONCONTRAST HISTORY: Symptoms of acute stroke TECHNIQUE: Contiguous axial imaging performed through the brain in 2.5 mm imaging. Bone and soft tiss ue windows. Sagittal and coronal reformats reviewed. All CT scans at [facility] use at least one of these dose optimization techniques: automated exposure control; mA and/or kV adjustment per pa tient size (includes targeted exams where dose is matched to clinical indication); or iterative recon struction. DLP: 1143.62 mGy COMPARISON: 05/06/2008 and 01/29/2022 No acute intracranial hemorrhage, midline shift or mass effect. No atrophy or prior infarcts or herniation. Ventricles: Normal size with no hydrocephalus. No intra displacement the cerebellar tonsils. Paranasal sinuses: Moderate mucoperiosteal thickening throughout the RIGHT maxillary sinus. No air-fl uid levels Mastoid air cells: Well pneumatized. Calvarium and scalp: Skull is intact with no soft tissue edema or swelling. IMPRESSION: 1. No acute intracranial hemorrhage or edema. 2. No prior infarct. 3. RIGHT maxillary sinus disease.
--- NOTE | 2023-05-31 13:50 | ED_ITS ---
HPI - Dizziness General: Chief Complaint: Dizziness Stated Complaint: headace and feels like hes drunk Time Seen by Provider: 05/31/23 12:47 Source: patient and family Mode of arrival: ambulatory Limitations: no limitations History of Present Illness: HPI Narrative: This patient presented to the emergency department because of concerns about what he terms was dizziness. He states he has been having some mild symptoms over the past 2 to 3 days. He states today however he was driving to a [place] spot and noticed he is having some difficulty keeping the card between the lines at times. He states that once he got to his location and got out of the truck his dizziness seemed to worsen. He states that he has had some mild headaches over the past couple days but nothing sustained. He did not have any associated weakness but states that on occasion when he would attempt to walk or change positions his symptoms would worsen. He states he is taking all his usual medi cations including his Eliquis. He has a history of atrial fibrillation. He denies any recent falls or traumas or other systemic symptoms. He has chronic hearing loss but no history of M?ni?re's and no tinnitus MD elicited complaint: dizziness, lightheadedness and difficulty walking Onset (ago): day(s) Timing: intermittent Description: off-balance Context: change in body position Exacerbating factors: change in body position Associated symptoms: Reports headache(s); Denies chest pain, chills, nausea, nasal congestion, palpitations, syncope or vomiting Associated neuro symptoms: Deny numbness in extremities Review of Systems Const: Denies: fever(s) or chills Eyes: Denies: change in vision ENMT: Denies: throat pain, odynophagia, nasal discharge or nasal congestion Card: Reports: irregular heart rhythm; Denies: chest pain, palpitations, syncope or pre-syncope Resp: Denies: dyspnea, productive cough or non-productive cough GI: Denies: abdominal pain, nausea, vomiting or diarrhea : Denies: flank pain, difficulty urinating or dysuria Musc: Denies: neck pain, back pain, extremity pain or extremity swelling Neuro: Reports: headache(s), difficulty walking, dizziness and vertigo; Denies: numbness in extremities, weakness in extremities or seizure-like activity Psych: Denies: anxiety, depression or mood swings PFS ED PFSH: Medical History Anticoagulation adequate with anticoagulant therapy Atrial fibrillation HTN (hypertension) Surgical History Previous back surgery S/P appendectomy S/P knee replacement S/P shoulder surgery Family History Mother Hypertension Heart disease Bleeding disorder CAD (coronary artery disease) sudden cardiac Diabetes Family history of premature coronary artery disease Father Hypertension Cancer Hyperlipidemia Grandmother Dementia Grandfather Stroke Denies family history of Clotting disorder Chronic kidney disease (CKD) Suicide Anesthesia complication Social History Smoking and tobacco status: former smoker Quit status (tobacco): has quit using tobacco Second hand smoke exposure: Yes Alcohol intake: never Substance/Drug Use: never Physical Exam Narrative: EXAM NARRATIVE: He appears to be in no acute distress was observed to ambulate with out difficulty without any ataxia. Const: COMMON NORMALS: no acute distress, average body habitus, patient o riented x3 and alert GENERAL APPEARANCE: cooperative ORIEN TATION/CONSCIOUSNESS: Yes awake, Yes oriented to person and Yes oriented to place HENMT: COMMON NORMALS: normocephalic, Normal nasal mucous membranes and turbinates present and moist oral mucous membranes HEAD & SCALP: normocephalic; no scalp tenderness and no Temporal artery tenderness present FACE & SINUS: normal facial exam, sinuses nontender and face symmetric NOSE: Normal nasal mucous membranes and turbinates present Eye: COMMON NORMALS: Equal, round and reactive pupils present, EOMs intact bilaterally and conjunctivae normal CONJUNCTIVA: Yes conjunctivae normal PUPIL: Yes Equal, round and reactive pupils present EOM: No Nystagmus present Neck/C-Spine: COMMON NORMALS: full ROM, no lymphadenopathy, supple and no meningeal signs Chest: COMMONS NORMALS: normal inspection of the chest Resp: COMMON NORMALS: normal respiratory effort, No retractions, No use of accessory muscles and clear to auscultation bilaterally AUSCULTATION: clear to auscultation bilaterally Cardio: COMMON NORMALS: regular rate, No murmurs present (Cardio) and Peripheral pulses 2+ throughout RATE: regular rate PERIPHERAL PULSES: Nataliia pheral pulses 2+ throughout GI: COMMON NORMALS: Normal to inspection, nondistended, normoactive bowel sounds present, Soft to palpation and non-tender PALPATION: Yes Soft to palpation : COMMON NORMALS: Yes no CVA tenderness BLADDER/KIDNEY EXAM: Yes no CVA tenderness Back/Pelvis: COMMON NORMALS: no CVA tenderness, thoracic and lumbar spine normal to inspection and no thoracic nor lumbar tenderness Extremity: COMMON NORMALS: normal to inspection, full ROM, capillary refill normal, no joint enlargement, no calf tenderness and no pedal edema Neuro: COMMON NORMALS: patient oriented x3, moves all extremities, no focal motor deficits and no sensory deficits noted SENSORIUM/ORIENTATION: Yes alert, Yes oriented to person and Yes oriented to place MENINGEAL SIGNS: Yes no meningeal signs CRANIAL NERVES: Yes CN normal except as noted SPEECH: speech normal GAIT: Yes Normal gait present Psych: COMMON NORMALS: mental status grossly normal Skin: COMMON NORMALS: no rashes or lesions noted, no wounds and turgor normal GENERAL SKIN EXAM: no rashes or lesions noted and turgor normal Course Reevaluation(s): Reevaluation #1: Patient been having symptoms off and on for 3 days. He has significant hypertension. His NIH is currently 0. Will initiate usual stroke work-up and will likely proceed to MRI of his noncontrast CT scan is negative for any evidence of bleeding etc. Time: 13:56 Reevaluation #2: Pressure has trended down with dose of labetalol in the emergency department. He is back at his baseline he does not feel dizzy and was noted to ambulate unaided without difficulty. His speech seems to be slow to him and is now more fluent. No new or focal findings on reevaluation. His current presentation strongly suggest this is likely related to his labile hypertension. Certainly no evidence at this time to suggest acute CVA to include posterior stroke. Particular his resolution of symptoms with imp rovement in blood pressure. Should be noted that we are unable to obtain MR due to having metal in his eye which apparently had not been disclosed previously. Given his response and improvement I do not feel that an acute MRI would add any additional information as I think he is at low risk for posterior circulation CVA given his current clinical picture. Time: 18:11 Vital Signs: Vital signs: Vital Signs Temperature 97.2 F L 05/31/23 12:35 Pulse Rate 69 05/31/23 17:06 Respiratory Rate 16 05/31/23 17:06 Blood Pressure 170/96 05/31/23 17:06 Pulse Oximetry 98 05/31/23 17:06 Oxygen Delivery Me thod Room Air 05/31/23 12:35 MDM - Dizziness Medical Decision Making This patient initially presented to the emergency department with subjective dizziness and lightheadedness that has been waxing and waning over the last couple of days and worsened today. Patient has a longstanding history of labile hypertension and states he has been faithful to all his medications. A detailed clinical neurologic examination did not find any evidence of focal findings at the time of his presentation with an NIH of 0. However because of concerns about possible [employer] relationship to his presentation stroke protocol was initiated albeit without calling code stroke due to his uncertain time of onset of symptoms. He has imaging and ancillary studies were reassuring. No evidence of acute intracranial hemorrhage, or other acute findings on thrombolytic CT. Doses of labetalol were initiated for blood pressure control. During his period of observation in the emergency department his symptoms resolved he was ambulatory unaided and no other new or focal findings. An attempt was made to obtain a MRI initially because of concern about post posterior stroke symptoms however because of ocular metallic foreign body MRI was reluctant to complete the study. In retrospect resolving with blood pressure control mitigate against posteriorHis symptoms circulation CVA in particular with him being asymptomatic symptomatic at this time. The patient will be discharged on his usual medication regimen and consultation will was made for follow-up for further adjustments in his blood pressure medication. Also return precautions were discussed. Medical Records I reviewed the patient's medical records. Lab Data I reviewed the patient's lab results. 05/31/23 13:43 05/31/23 13:43 Laboratory Results WBC 6.75 10^3/uL (3.29-11.43) 05/31/23 13:43 RBC 4.23 10^6/uL (3.85-5.65) 05/31/23 13:43 Hgb 14.30 g/dL (11.27-16.99) 05/31/23 13:43 Hct 41.1 % (37-53) 05/31/23 13:43 MCV 97.2 fl (82-101) 05/31/23 13:43 MCH 33.8 pg (27-33) H 05/31/23 13:43 MCHC 34.8 g/dL (30-55) 05/31/23 13:43 RDW 12.9 % (12.1-15.1) 05/31/23 13:43 Plt Count 216 10^3/cmm (157-399) 05/31/23 13:43 MPV 10.4 fL (7.4-10.4) 05/31/23 13:43 Neut % (Auto) 65.7 % 05/31/23 13:43 Lymph % (Auto) 18.8 % 05/31/23 13:43 [place] % (Auto) 12.3 % 05/31/23 13:43 Eos % (Auto) 2.4 % 05/31/23 13:43 Baso % (Auto) 0.7 % 05/31/23 13:43 Neut # (Auto) 4.43 10^3/uL (1.8-7.7) 05/31/23 13:43 Lymph # (Auto) 1.3 10^3/uL (0.8-4.8) 05/31/23 13:43 [place] # (Auto) 0.8 10^3/uL (0.2-0.9) 05/31/23 13:43 Eos # (Auto) 0.2 10^3/uL (0.0-0.8) 05/31/23 13:43 Baso # (Auto) 0.1 10^3/uL (0.0-0.1) 05/31/23 13:43 Nucleated RBC % (auto) 0 % 05/31/23 13:43 Nucleated RBCs # 0.0 /100WBC 05/31/23 13:43 PT 16.30 SECONDS (12.1-14.9) H 05/31/23 13:43 INR 1.27 (0.8-1.2) H 05/31/23 13:43 APTT 42.0 SECONDS (23.9-36.7) H 05/31/23 13:43 Sodium 141 mmol/L (136-145) 05/31/23 13:43 Potassium 3.8 mmol/L (3.5-5.1) 05/31/23 13:43 Chloride 107 mmol/L (98-107) 05/31/23 13:43 Carbon Dioxide 23 mmol/L (22-29) 05/31/23 13:43 Anion Gap 14.8 (5-19) 05/31/23 13:43 BUN 14 mg/dL (8-23) 05/31/23 13:43 Creatinine 0.8 mg/dL (0.7-1.2) 05/31/23 13:43 GFR Calculation 97.0 mL/min (90-130) 05/31/23 13:43 Glucose 111 mg/dL (65-115) 05/31/23 13:43 POC Glucose 104 mg/dL (70-110) 05/31/23 13:58 Calculated Osmolality 293 mOsm/kg (285-295) 05/31/23 13:43 Calcium 10.0 mg/dL (8.5-10.5) 05/31/23 13:43 Total Bilirubin 0.9 mg/dL (0.15-1.2) 05/31/23 13:43 AST 16 U/L (0-40) 05/31/23 13:43 ALT 15 U/L (0-41) 05/31/23 13:43 Alkaline Phosphatase 71 U/L (40-130) 05/31/23 13:43 Total Protein 7.6 g/dL (6.6-8.7) 05/31/23 13:43 Albumin 4.8 g/dL (3.5-5.2) 05/31/23 13:43 Globulin 2.8 g/dL (1.3-4.6) 05/31/23 13:43 Urine Color Yellow (Yellow) 05/31/23 17:02 Urine Appearance Clear (CLEAR) 05/31/23 17:02 Urine pH 6 (5-7) 05/31/23 17:02 Ur Specific [place] 1.010 (1.005-1.030) 05/31/23 17:02 Urine Protein Neg (Negative) 05/31/23 17:02 Urine Glucose (UA) Norm (Normal) 05/31/23 17:02 Urine Ketones Negative (Negative) 05/31/23 17:02 Urine Blood Neg (Negative) 05/31/23 17:02 Urine Nitrate Negative (Negative) 05/31/23 17:02 Urine Bilirubin Neg (Negative) 05/31/23 17:02 Urine Urobilinogen Norm mg/dL (Negative) 05/31/23 17:02 Ur Leukocyte Esterase Negative (Negative) 05/31/23 17:02 All radiology interpretation(s) finalized by discharge EKG Data EKG 1: I personally reviewed and interpreted this EKG as follows: Interpretation: Contemporaneous review of EKG reveals a ventricular rate of 70 bpm consistent with atrial fibrillation. Controlled ventricular response. Normal QRS duration, corrected QT interval. No acute ST-T wave changes noted. Discharge Plan Discharge Patient Disposition: Home Clinical Impression: Atrial fibrillation, Labile hypertension Condition: Stable Prescriptions: No Action nitroglycerin [Nitrostat] 0.4 mg tablet, sublingual 0.4 mg SUBLINGUAL DIRECTED PRN (Reason: Chest Pain) apixaban 5 mg tablet 5 mg PO BID Qty: 180 3RF furosemide [Lasix] 20 mg tablet 20 mg PO DAILY PRN (Reason: weight gain) Qty: 30 4RF Rx Instructions: More than 3 pounds weight gain in a day, worsening shortness of breath you can take Lasix, when you take Lasix also take potassium with it potassium chloride 10 mEq capsule, extended release 10 meq PO DAILY PRN (Reason: When you take Lasix) Qty: 30 2RF carvedilol 25 mg tablet 25 mg PO BID hydralazine 50 mg tablet 50 mg PO BID valsartan 160 mg tablet 160 mg PO QAM Rx Instructions: Discontinue losartan hydrochlorothiazide combination, you are getting valsartan alone as starting Lasix, do not take hydrochlorothiazide Discharge Orders: Discharge ED (Routine); Ordered 05/31/23 Ordered By: Kenny Tee Referrals: Monie Dorado DO [Primary Care Provider] - Discharge Diet: Low Salt Discharge Activity: Increase activity as tolerated Patient Instructions: Opioid Safety, Pain Management Coding Level of Care Code ED [employer]er Placer for Tamie Arreola
[2023-05-31 13:56] LABS: Basophils # 0.1 10^3/uL (0.0-0.1); Basophils % 0.7 %; Eosinophils # 0.2 10^3/uL (0.0-0.8); Eosinophils % 2.4 %; Hematocrit 41.1 % (37-53); Lymphocytes # 1.3 10^3/uL (0.8-4.8); Lymphocytes % 18.8 %; Mean Corpuscular HGB Conc 34.8 g/dL (30-55); Mean Corpuscular Hemoglobin 33.8 pg (27-33); Mean Corpuscular Volume 97.2 fl (82-101); Mean Platelet Volume 10.4 fL (7.4-10.4); Monocytes # 0.8 10^3/uL (0.2-0.9); Monocytes % 12.3 %; Neutrophils # 4.43 10^3/uL (1.8-7.7); Neutrophils % 65.7 %; Nucleated Red Blood Cells % 0 %; Platelet Count 216 10^3/cmm (157-399); Red Blood Count 4.23 10^6/uL (3.85-5.65); Red Cell Distribution Width 12.9 % (12.1-15.1); White Blood Count 6.75 10^3/uL (3.29-11.43)
[2023-05-31 14:01] LABS: Glucose Point of Care 104 mg/dL (70-110)
--- NOTE | 2023-05-31 14:12 | PC.NURSE ---
PT PLACED ON CONTINUOUS NIBP ,SPO2, and cm
[2023-05-31 14:16] LABS: INR 1.27 (0.8-1.2)
[2023-05-31 14:22] LABS: Alanine Aminotransferase 15 U/L (0-41); Albumin Level 4.8 g/dL (3.5-5.2); Alkaline Phosphatase 71 U/L (40-130); Anion Gap 14.8 (5-19); Aspartate Amino Transferase 16 U/L (0-40); Blood Urea Nitrogen 14 mg/dL (8-23); Carbon Dioxide 23 mmol/L (22-29); Chloride 107 mmol/L (98-107); Globulin 2.8 g/dL (1.3-4.6); Glucose 111 mg/dL (65-115); Osmolality Calculated 293 mOsm/kg (285-295); Potassium 3.8 mmol/L (3.5-5.1); Sodium 141 mmol/L (136-145); Total Bilirubin 0.9 mg/dL (0.15-1.2); Total Protein 7.6 g/dL (6.6-8.7)
[2023-05-31 15:20] VITALS: BP 171/94; PULSE 88; RESP 16; O2SAT 94
[2023-05-31] MEDS: labetalol 5 mg/mL SDV 20mL 20 MG IVP ×2 (15:24→17:03)
[2023-05-31 16:07] VITALS: BP 182/109; PULSE 71; RESP 19; O2SAT 98
[2023-05-31 17:06] VITALS: BP 170/96; PULSE 69; RESP 16; O2SAT 98
[2023-05-31 17:12] LABS: Add Urine Microscopic? NO; Charge for UA Resulting for Rev
[2023-05-31 17:40] LABS: Bilirubin Urine Neg (Negative); Blood Urine Neg (Negative); Glucose Urine UA Norm (Normal); Ketones Urine Negative (Negative); Leukocyte Esterase Urine Negative (Negative); Nitrate Urine Negative (Negative); Protein Urine Neg (Negative); Urine Appearance Clear (CLEAR); Urine Color Yellow (Yellow); Urobilinogen Urine Norm (Negative); pH Urine 6 (5-7)
--- NOTE | 2023-05-31 18:19 | PC.NURSE ---
PT AMBULATED APPROX 50FT. PT GAIT AND BALANCE WNL. PT STATES SYMPTOMS HAVE RESOLVED.
[2023-05-31 18:28] VITALS: BP 205/122; PULSE 68; RESP 16; O2SAT 100
--- NOTE | 2023-06-02 16:52 | PC.SOCIAL ---
Cardiology Referral Referral message sent to clinic at this time. Clinic to contact patient with appt date/time.
== END 2023-05-31 18:32 | disposition home or self-care (01) ==
PROVIDERS: Emergency Provider Emergency Medicine; PCP Family Medicine
DX: I48.91 Unspecified atrial fibrillation (principal); I10 Essential (primary) hypertension; Z87.891 Personal history of nicotine dependence
CPT/HCPCS: 36416; 70450; 71045; 80053; 81003; 82962; 85025; 85610; 85730; 93005; 96374; 96376; 99285; J3490